=== PATIENT | male | born 1995 | race Caucasian/White ===

== ENCOUNTER 2018-10-05 06:26 | Emergency (ER) | payer OTHER ==
[2018-10-05 07:44] LABS: BASO % 0.4 % (0.0-1.0); EOS # 0.3 10^3/uL (0.0-0.50); EOS % 3.8 % (0.0-3.0); HEMATOCRIT 43.1 % (42.0-52.0); HEMOGLOBIN 14.8 g/dl (13.5-17.5); IMMATURE GRANULOCYTE % 0.5 % (0-3.0); LYMPH # 0.9 10^3/uL (1.5-6.5); LYMPH % 11.7 % (24.0-44.0); MEAN CORPUSCULAR HEMOGLOBIN 30.5 pg (27.0-33.0); MEAN CORPUSCULAR HGB CONC 34.3 g/dl (32.0-36.5); MEAN CORPUSCULAR VOLUME 88.9 fl (80.0-96.0); MONO # 0.5 10^3/uL (0.0-0.8); MONO % 6.8 % (0.0-5.0); NEUTROPHILS # 6.1 10^3/uL (1.8-7.7); NEUTROPHILS % 76.8 % (36.0-66.0); PLATELET COUNT, AUTOMATED 263 10^3/uL (150-450); RED BLOOD COUNT 4.85 10^6/uL (4.30-6.10); RED CELL DISTRIBUTION WIDTH 12.1 % (11.5-14.5); WHITE BLOOD COUNT 7.9 10^3/uL (4.0-10.0)
[2018-10-05 08:20] LABS: ANION GAP 6 MEQ/L (8-16); BLOOD UREA NITROGEN 20 MG/DL (7-18); CALCIUM LEVEL 9.4 MG/DL (8.5-10.1); CARBON DIOXIDE LEVEL 30 MEQ/L (21-32); CHLORIDE LEVEL 102 MEQ/L (98-107); CREATININE FOR GFR 1.34 MG/DL (0.70-1.30); GLOMERULAR FILTRATION RATE > 60.0 (>60); GLUCOSE, FASTING 90 MG/DL (70-100); POTASSIUM SERUM 4.5 MEQ/L (3.5-5.1); SODIUM LEVEL 138 MEQ/L (136-145)
[2018-10-05 08:22] LABS: FREE THYROXINE INDEX 3.6 % (1.4-3.8); T UPTAKE 33 % (33-40); THYROXINE (T4) 10.8 UG/DL (4.5-12.0)
[2018-10-05] MEDS: NS 1,000 ML IV (08:43)
[2018-10-05] MEDS ORDERED: ISOVUE-370 76% 100ML VIAL (Q9967) As Ordered (08:47)
== END 2018-10-05 10:23 | disposition home or self-care (01) ==
LOC: M ED 06:26
DX: J02.9 Acute pharyngitis, unspecified (principal); E86.0 Dehydration; Z79.890 Hormone replacement therapy
CPT/HCPCS: Q9967

== ENCOUNTER → 2018-12-12 | Outpatient (REF) | payer OTHER ==
[~2018-12-12] MED LIST: IBUP-1022 PO; LEVO112T2 PO
[2018-12-12 12:56] LABS: FREE T4 1.13 NG/DL (0.76-1.46); THYROID STIMULATING HORMONE 8.15 uIU/ML (0.358-3.740)
== END ==
LOC: M LABDRAW1 11:35
PROVIDERS: ATTEND Nurse Practitioner Family
DX: E06.3 Autoimmune thyroiditis (principal)

== ENCOUNTER 2019-03-15 00:05 | Emergency (ER) | payer OTHER ==
[~2019-03-15] VITALS: Ht 182.9 cm; Wt 81.8 kg
[2019-03-15 00:53] LABS: BASO % 0.4 % (0.0-1.0); EOS # 0.2 10^3/uL (0.0-0.50); EOS % 3.3 % (0.0-3.0); HEMATOCRIT 43.7 % (42.0-52.0); LYMPH # 1.9 10^3/uL (1.5-6.5); LYMPH % 36.1 % (24.0-44.0); MEAN CORPUSCULAR HEMOGLOBIN 29.2 pg (27.0-33.0); MEAN CORPUSCULAR HGB CONC 34.3 g/dl (32.0-36.5); MONO # 0.6 10^3/uL (0.0-0.8); MONO % 10.7 % (0.0-5.0); NEUTROPHILS # 2.5 10^3/uL (1.8-7.7); NEUTROPHILS % 48.9 % (36.0-66.0); PLATELET COUNT, AUTOMATED 259 10^3/uL (150-450); RED BLOOD COUNT 5.14 10^6/uL (4.30-6.10); WHITE BLOOD COUNT 5.1 10^3/uL (4.0-10.0)
[2019-03-15 01:23] LABS: AMPHETAMINES LEVEL URINE NEGATIVE (NEGATIVE); BARBITURATES URINE NEGATIVE (NEGATIVE); BENZODIAZEPINES URINE NEGATIVE (NEGATIVE); CANNABINOIDS URINE NEGATIVE (NEGATIVE); COCAINE METABOLITE URINE NEGATIVE (NEGATIVE); METHADONE URINE NEGATIVE (NEGATIVE); OPIATES URINE NEGATIVE (NEGATIVE); PHENCYCLIDINE URINE NEGATIVE (NEGATIVE)
[2019-03-15 01:26] LABS: ALBUMIN 3.9 GM/DL (3.2-5.2); ALT/SGPT 21 U/L (12-78); BILIRUBIN,DIRECT < 0.1 MG/DL (0.0-0.2); BILIRUBIN,TOTAL 0.3 MG/DL (0.2-1.0); BLOOD UREA NITROGEN 16 MG/DL (7-18); CALCIUM LEVEL 8.7 MG/DL (8.5-10.1); CARBON DIOXIDE LEVEL 31 MEQ/L (21-32); CHLORIDE LEVEL 104 MEQ/L (98-107); CREATININE FOR GFR 1.47 MG/DL (0.70-1.30); ETHYL ALCOHOL (ETHANOL) < 0.003 % (0.000-0.010); FREE T4 1.05 NG/DL (0.76-1.46); GLOMERULAR FILTRATION RATE > 60.0 (>60); GLUCOSE, FASTING 111 MG/DL (70-100); POTASSIUM SERUM 3.8 MEQ/L (3.5-5.1); SODIUM LEVEL 141 MEQ/L (136-145); TOTAL PROTEIN 7.7 GM/DL (6.4-8.2)
[2019-03-15 02:58] VITALS: BP 148/87
[2019-03-15] MEDS ORDERED: IBUPROFEN 600 MG TAB PO ONE (03:00)
== END 2019-03-15 03:22 | disposition home or self-care (01) ==
LOC: M ED 00:05
DX: F45.0 Somatization disorder (principal); E03.9 Hypothyroidism, unspecified; Z79.890 Hormone replacement therapy
CPT/HCPCS: 80048; 80076; 80307; 84439; 84443; 85025; 99284; G0480

== ENCOUNTER → 2019-03-22 | Outpatient (CLI) | payer OTHER ==
--- NOTE | 2019-03-22 16:55 | REP ---
MR BRAIN WITHOUT CONTRAST: HISTORY: Migraine headache. Several punctate areas of increased signal intensity on T2-weighted images are present in the subcortical white matter of the frontal lobes. There is no intraparenchymal hemorrhage, infarct, mass or midline shift. The ventricular system is normal in appearance. There is no extracerebral collection. Minimal mucosal thickening is present in the left maxillary sinus. IMPRESSION: There are several punctate areas of increased signal intensity in the subcortical white matter of the frontal lobes. This is a nonspecific finding, however, can be seen in conditions such as migraine. Electronically Signed by Gm Johnson MD 03/22/2019 05:04 P
== END ==
LOC: M RAD 14:31
PROVIDERS: ATTEND Physician Assistant
DX: R51 Headache (principal)

== ENCOUNTER 2019-12-04 00:49 | Inpatient (IN) | payer OTHER ==
[~2019-12-04] VITALS: Ht 190.5 cm; Wt 97.2 kg
[~2019-12-04 00:49] MED LIST changes: +ONDA4TAB6 PO
[2019-12-04] MEDS ORDERED: NS 1,000 ML IV ONE ×2 (01:30→03:15)
[2019-12-04] MEDS ORDERED: MORPHINE 4 MG/ML 1ML VIAL/SYRINGE (J2270) IV ONE (01:45)
[2019-12-04] MEDS ORDERED: METOCLOPRAMIDE INJ 10MG/2ML VIAL (J2765) IV ONE (01:45)
[2019-12-04 01:51] LABS: BASO # 0.1 10^3/uL (0.0-0.2); BASO % 0.8 % (0.0-1.0); EOS # 0.5 10^3/uL (0.0-0.5); EOS % 5.5 % (0.0-3.0); HEMATOCRIT 44.1 % (42.0-52.0); HEMOGLOBIN 14.3 g/dl (13.5-17.5); LYMPH # 1.4 10^3/uL (1.5-5.0); LYMPH % 14.6 % (24.0-44.0); MEAN CORPUSCULAR HGB CONC 32.4 g/dl (32.0-36.5); MEAN CORPUSCULAR VOLUME 89.5 fl (80.0-96.0); MONO # 0.8 10^3/uL (0.0-0.8); MONO % 8.2 % (0.0-5.0); NEUTROPHILS # 6.7 10^3/uL (1.5-8.5); NEUTROPHILS % 70.3 % (36.0-66.0); PLATELET COUNT, AUTOMATED 542 10^3/uL (150-450); RED BLOOD COUNT 4.93 10^6/uL (4.30-6.10); WHITE BLOOD COUNT 9.5 10^3/uL (4.0-10.0)
[2019-12-04 02:01] LABS: INR 1.13; PROTHROMBIN TIME 14.2 SECONDS (11.8-14.0)
[2019-12-04 02:09] LABS: ERYTHROCYTE SEDIMENTATION RATE 46 mm/hr (0-15)
[2019-12-04 02:13] LABS: ALBUMIN 3.6 GM/DL (3.2-5.2); BILIRUBIN,DIRECT 0.2 MG/DL (0.0-0.2); BILIRUBIN,TOTAL 0.5 MG/DL (0.2-1.0); C REACTIVE PROTEIN QUANTITATIV 2.93 MG/DL (0.00-0.30); CALCIUM LEVEL 8.8 MG/DL (8.5-10.1); CREATININE FOR GFR 1.63 MG/DL (0.70-1.30); GLOMERULAR FILTRATION RATE 56.1 (>60); POTASSIUM SERUM 4.4 MEQ/L (3.5-5.1); TOTAL PROTEIN 7.6 GM/DL (6.4-8.2)
[2019-12-04] MEDS ORDERED: NS 1,000 ML IV SCH (03:15)
[2019-12-04] MEDS ORDERED: ONDANSETRON 4MG/2ML VIAL (J2405) IV PRN (03:15)
[2019-12-04] MEDS ORDERED: MAALOX 30 ML SUSP *UDC PO PRN (03:15)
[2019-12-04 04:00] VITALS: BP 136/81
[2019-12-04] MEDS: ACETAMINOPHEN TAB 650MG DOSE (2X325MG) PO PRN ×3 (04:10→20:11)
[2019-12-04] MEDS: MOM 30ML SUSPENSION UDC PO PRN (04:14)
--- NOTE | 2019-12-04 04:37 | HPEPDOC ---
[facility] Medical History & Physical Date of Admission Dec 04, 2019 Date of Service: Dec 04, 2019 History and Physical CHIEF COMPLAINT: Flank pain, nausea HISTORY OF PRESENT ILLNESS: Patient is a 24-year-old male with past medical history of hypothyroidism, presenting with nausea without vomiting, decrease oral intake. Per patient, he was diagnosed with flu approximately a week ago where he had a fever, took E xcedrin which alleviated his symptoms. His previous cough-like symptoms have resolved. He does report recent travel to [place], but denies sick contacts. However, he put reports nausea without vomiting, decrease oral intake, and new onset kidney/flank pain. He does note conjunctivitis that started about 1-2 weeks ago, no vision changes, no itchiness, no pain. He came to the ED the day prior with similar workup, urine does not appear to be suggestive of UTI, creatinine was consistent at 1.6. In the ED, he is afebrile, initial blood pressure slightly elevated 147/71. As include a CBC of 9.5, H&H of 14.3 and 44.3 respectively, platelets of 542. Patient does have elevated neutrophil percentage, interestingly, he also has elevated eosinophil percentage. Imaging includes chest x-ray today, which appears to be NAD, pending official read. He also had a CT abdomen and pelvis performed on 12/03/2019, which reveals no nephrolithiasis or hydronephrosis, but reveals stool suggestive of constipation. ROS: 10 point review systems negative except per above. PMH: See above. PSH: See above. Family history: Reviewed and noncontributory Social history: No tobacco, alcohol, or illicits, he is in the Medications: Reviewed Allergies: NKDA PHYSICAL EXAMINATION: VITAL SIGNS: Please see below. GENERAL: male who does appear to be clinically sick HEENT: Normocephalic, atraumatic, moist mucous membranes, PERRLA, EOMI, bilateral conjunctivitis, no drainage NECK: Supple, no LAD CARDIOVASCULAR EXAMINATION: S1, S2 RESPIRATORY EXAMINATION: CTAB ABDOMINAL EXAMINATION: Soft, nontender, nondistended, hypoactive bowel sounds, bilateral CVA tenderness EXTREMITIES: no edema SKIN: No rash NEUROLOGICAL EXAMINATION: awake PSYCHIATRIC EXAMINATION: Calm and cooperative, appropriate affect Patient is a 24-year-old male with past medical history of hypothyroidism, presenting with nausea without vomiting, decrease oral intake and CHRISTOPHER. Observation, MedSurg. #CHRISTOPHER, likely secondary to prerenal from dehydration: Deferred. differentials include infection gastroenteritis, autoimmune processes, Patient only received 1 L of normal saline in the ED, his weight is 189, will bolus more IVF with maintenance fluids, will also administer anti-emetics, avoid nephrotoxins, monitor creatinine and GFR #Asymptomatic conjunctivitis: Continue to monitor, conjunctivitis with nausea and constipation could be suggestive of marijuana use, follow-up UDS #Elevated CRP/thrombocytosis suggestive of inflammatory progress could be secondary to underlying hypothyroidism and dehydration, if patients symptoms worsen, could be associated to other autoimmune processes related to Churg doreen syndrome, lupus, rheumatoid, Sjogren syndrome, etc. may need rheum vs nephrology evaluation if pts sx dont improve with sx tx. If infection, appears to be viral at this time, no antibiotics. #elevated eosinophil %: allergies vs autoimmune, monitor CBC #Hypothyroidism: Continue patients home medication #Constipation: Bowel regimen. DVT prophylaxis: freq ambulation, SCDs Full code Vital Signs Vital Signs Date Time Temp Pulse Resp B/P (MAP) Pulse Ox O2 Delivery O2 Flow Rate FiO2 12/04/19 03:10 98.4 71 18 129/60 (83) 94 12/04/19 00:50 Room Air Laboratory Data Labs 24H Laboratory Tests 2 12/04/19 01:40: Immature Granulocyte % (Auto) 0.6, Neutrophils (%) (Auto) 70.3H, Lymphocytes (%) (Auto) 14.6L, Monocytes (%) (Auto) 8.2H, Eosinophils (%) (Auto) 5.5H, Basophils (%) (Auto) 0.8, Neutrophils # (Auto) 6.7, Lymphocytes # (Auto) 1.4L, Monocytes # (Auto) 0.8, Eosinophils # (Auto) 0.5, Basophils # (Auto) 0.1, Nucleated Red Blood Cells % (auto) 0.0, Erythrocyte Sedimentation Rate 46H, Prothrombin Time 14.2H, Prothromb Time International Ratio 1.13, Anion Gap 7L, Glomerular Filtration Rate 56.1L, Lactic Acid Level 0.7, Calcium Level 8.8, Total Bilirubin 0.5, Direct Bilirubin 0.2, Aspartate Amino Transf (AST/SGOT) 26, Alanine Aminotransferase (ALT/SGPT) 67, Alkaline Phosphatase 108, Total Creatine Kinase 181, C-Reactive Protein, Quantitative 2.93H, Total Protein 7.6, Albumin 3.6, Albumin/Globulin Ratio 0.90L, Lipase 95 CBC/BMP Laboratory Tests 12/04/19 01:40 Home Medications Scheduled Levothyroxine Sodium (Levothyroxine Sodium) 112 Mcg Tab, 112 MCG PO DAILY Allergies Coded Allergies: No Known Allergies (Unverified , 10/05/18) A-FIB/CHADSVASC A-FIB History Current/History of A-Fib/PAF?: No JOHANNA YANG MD Dec 04, 2019 03:15
[2019-12-04 06:00] VITALS: BP 115/58
[2019-12-04] MEDS: NS 1,000 ML IV SCH ×3 (06:17→22:09)
--- NOTE | 2019-12-04 07:23 | REP ---
Clinical: Lower chest and flank pain . Comparison: None . Technique: PA and lateral. Findings: The mediastinum and cardiac silhouette are normal. The lung more are clear and without acute consolidation, effusion, or pneumothorax. The skeletal structures are intact and normal. Impression: 1. No acute cardiopulmonary process. Electronically Signed by Kamaljit Hook MD 12/04/2019 07:14 A
[2019-12-04] MEDS: DOCUSATE SODIUM 100 MG CAP PO SCH ×2 (09:19→20:11)
[2019-12-04] MEDS: MIRALAX *UNIT DOSE* 17GM PACKET PO SCH (09:19)
--- NOTE | 2019-12-04 10:32 | IPNPDOC ---
Subjective Date Seen The patient was seen on 12/04/19. Subjective Chief Complaint/HPI Seen and examined at bedside, awake and alert, denies cp/pressure, sob, n/v/d, some mild abdominal cramping, no urinary complaints. General: Reports: Normal Appetite; Denies: Chills, Night Sweats, Fatigue, Malaise Constitutional: Reports: Weakness; Denies: Chills, Fever, Night Sweats Eyes: Reports: Conjunctivae inflammation, Redness; Denies: Pain, Vision change ENT: Denies: Head Aches, Ear Pain, Dysphagia Skin: Denies: Rash, Lesions, Breakdown Pulmonary: Denies: Dyspnea, Cough Cardiovascular: Denies: Chest Pain, Palpitations, Orthopnea, Paroxysmal Noc. Dyspnea, Lt Headedness Gastrointestinal: Denies: Nausea, Vomiting, Abdominal Pain, Diarrhea, Constipation Genitourinary: Denies: Dysuria, Frequency, Incontinence, Retention Hematologic: Denies: Bruising, Bleeding Excessively Musculoskeletal: Denies: Neck Pain, Back Pain, Joint Pain, Muscle Pain, Spasms Neurological: Denies: Weakness, Numbness, Change in speech, Confusion Psych: Reports: Mood Normal; Denies: Depression, Memory Issues Objective Physical Examination General Exam: Positive: Alert, No Acute Distress Eye Exam: Positive: PERRLA, Conjunctiva & lids normal, EOMI, Ptosis, Other Eye Symptoms (subconjunctival hemorrhages); Negative: Sclera icteric ENT Exam: Positive: Atraumatic, Mucous membr. moist/pink, Pharynx Normal Neck Exam: Positive: Supple; Negative: JVD, thyromegaly Chest Exam: Positive: Clear to auscultation, Normal air movement Heart Exam: Positive: Rate Normal, Regular Rhythm, Normal S1, Normal S2; Negative: Murmurs, Rubs Telemetry: Positive: No significant arrhythmia Abdomen Exam: Positive: Normal bowel sounds, Soft; Negative: Tenderness, Hepatospenomegaly Male Exam: Positive: Normal Genital Exam Extremity Exam: Positive: Normal pulses; Negative: Clubbing, Cyanosis, Edema Skin Exam: Positive: Nl turgor and temperature; Negative: Rash, Breakdown Neuro Exam: Positive: Normal Gait, Normal Speech, Cranial Nerves 3-12 NL, Reflexes 2+ Psych Exam: Positive: Mental status NL, Mood NL, Oriented x 3 Assessment /Plan Assessment 1. CHRISTOPHER - continue IVF. - monitor SCr, encourage PO intake. - avoid nephrotoxic agents. 2. asymptomatic conjunctivitis - ?marijuana use, pending urine drug screen - monitor, eyedrops as needed. 3. hypothyroidism - continue synthroid. 4. elevated CRP/platelets - could be secondary to underlying hypothyroidism and dehydration. - monitor, consider rheum consult if symptoms worsen. 5. constipation - bowel regimen. 6. DVT ppx - SCD's. Plan/VTE VTE Prophylaxis Ordered?: Yes VS, I&O, 24H, Fishbone Vital Signs/I&O Vital Signs Date Time Temp Pulse Resp B/P (MAP) Pulse Ox O2 Delivery O2 Flow Rate FiO2 12/04/19 06:00 98.2 69 17 115/58 (77) 98 Room Air I&O- Last 24 Hours up to 6 AM 12/04/19 06:00 Intake Total 1300 ml Balance 1300 ml Laboratory Data 24H LABS Laboratory Tests 2 12/04/19 01:40: Immature Granulocyte % (Auto) 0.6, Neutrophils (%) (Auto) 70.3H, Lymphocytes (%) (Auto) 14.6L, Monocytes (%) (Auto) 8.2H, Eosinophils (%) (Auto) 5.5H, Basophils (%) (Auto) 0.8, Neutrophils # (Auto) 6.7, Lymphocytes # (Auto) 1.4L, Monocytes # (Auto) 0.8, Eosinophils # (Auto) 0.5, Basophils # (Auto) 0.1, Nucleated Red Blood Cells % (auto) 0.0, Erythrocyte Sedimentation Rate 46H, Prothrombin Time 14.2H, Prothromb Time International Ratio 1.13, Anion Gap 7L, Glomerular Filtration Rate 56.1L, Lactic Acid Level 0.7, Calcium Level 8.8, Total Bilirubin 0.5, Direct Bilirubin 0.2, Aspartate Amino Transf (AST/SGOT) 26, Alanine Aminotransferase (ALT/SGPT) 67, Alkaline Phosphatase 108, Total Creatine Kinase 181, C-Reactive Protein, Quantitative 2.93H, Total Protein 7.6, Albumin 3.6, Albumin/Globulin Ratio 0.90L, Lipase 95 CBC/BMP Laboratory Tests 12/04/19 01:40 SONYA DANIELSON MD Dec 04, 2019 10:32
[2019-12-04 14:00] VITALS: BP 138/73
[2019-12-04] MEDS ORDERED: BISACODYL 10 MG SUPP PR PRN (18:00)
[2019-12-04 22:00] VITALS: BP 135/73
[2019-12-05] MEDS: MOM 30ML SUSPENSION UDC PO PRN (04:09)
[2019-12-05] MEDS: ACETAMINOPHEN TAB 650MG DOSE (2X325MG) PO PRN ×2 (04:09→12:31)
[2019-12-05 06:00] VITALS: BP 133/75
[2019-12-05 07:36] LABS: HEMATOCRIT 42.4 % (42.0-52.0); HEMOGLOBIN 13.7 g/dl (13.5-17.5); MEAN CORPUSCULAR HEMOGLOBIN 28.7 pg (27.0-33.0); MEAN CORPUSCULAR HGB CONC 32.3 g/dl (32.0-36.5); MEAN CORPUSCULAR VOLUME 88.7 fl (80.0-96.0); PLATELET COUNT, AUTOMATED 523 10^3/uL (150-450); RED BLOOD COUNT 4.78 10^6/uL (4.30-6.10); WHITE BLOOD COUNT 9.7 10^3/uL (4.0-10.0)
[2019-12-05 08:07] LABS: BLOOD UREA NITROGEN 12 MG/DL (7-18); CALCIUM LEVEL 9.1 MG/DL (8.5-10.1); CARBON DIOXIDE LEVEL 28 MEQ/L (21-32); CHLORIDE LEVEL 103 MEQ/L (98-107); CREATININE FOR GFR 1.39 MG/DL (0.70-1.30); GLOMERULAR FILTRATION RATE > 60.0 (>60); GLUCOSE, FASTING 84 MG/DL (70-100); POTASSIUM SERUM 3.9 MEQ/L (3.5-5.1); SODIUM LEVEL 138 MEQ/L (136-145)
[2019-12-05] MEDS: MIRALAX *UNIT DOSE* 17GM PACKET PO SCH (08:12)
[2019-12-05] MEDS: DOCUSATE SODIUM 100 MG CAP PO SCH ×2 (08:12→20:02)
[2019-12-05] MEDS ORDERED: FLEET ENEMA PR PRN (08:30)
[2019-12-05 10:12] VITALS: BP 133/72
[2019-12-05] MEDS: LEVOTHYROXINE 112MCG TABLET (0.112MG) PO SCH (12:31)
[2019-12-05 14:40] VITALS: BP 132/59
[2019-12-05] MEDS: OLOPATADINE 0.1% OPHTH SOL 5ML(PATANOL) OU SCH (15:46)
--- NOTE | 2019-12-05 19:47 | IPNPDOC ---
Date Seen The patient was seen on 12/05/19. Progress Note SUBJECTIVE: Patient reports continuing to feel better, especially after getting fleet enema. Stated that he had been constipated for 5 days and feels much better after. Denies any n/v, started on regular diet. OBJECTIVE PHYSICAL EXAMINATION: VITAL SIGNS: Please see below. General: No acute distress, Alert Eyes: b/l conjunctivitis. No purulent discharge. HENT: Atraumatic Cardiovascular: Normal rate, normal rhythm. Pulmonary: Clear to auscultation b/l, no wheezing GI: Soft, nontender, nondistended Skin: Warm and dry Neuro: CN grossly intact. No focal deficits. Strengths equal b/l. Psych: oriented x 3 LABORATORY DATA, IMAGING STUDIES, MICROBIOLOGY: Please see below. DVT prophylaxis ordered?: SCD ASSESSMENT AND PLAN: 1. CHRISTOPHER - Improving with IVF. 2. Conjunctivitis - suspect viral. No purulent discharge, no visual changes. - No significant signs of systemic infection. - c/w Patanol eye drops. 3. Hypothyroidism - synthroid resumed 4. Elevated CRP/Platelets - suspect inflammatory response in setting of hypothyroidism and dehydration. - slightly trending down with IVF. - Suspect reactive in nature vs. familial thrombocytosis as patient does not exhibit polycythemia or leukocytosis. can be 2/2 viral infection. 5. Constipation - improving symptoms after enema. - c/w bowel regimen. Dispo: Likely d/c home soon if continue to improve VS, I&O, 24H, Fishbone Vital Signs/I&O Vital Signs Date Time Temp Pulse Resp B/P (MAP) Pulse Ox O2 Delivery O2 Flow Rate FiO2 12/05/19 14:40 98.7 74 18 132/59 (83) 97 Room Air I&O- Last 24 Hours up to 6 AM 12/05/19 06:00 Intake Total 4500 ml Output Total 300 ml Balance 4200 ml Laboratory Data 24H LABS Laboratory Tests 2 12/05/19 07:00: Nucleated Red Blood Cells % (auto) 0.0, Anion Gap 7L, Glomerular Filtration Rate > 60.0, Calcium Level 9.1 CBC/BMP Laboratory Tests 12/05/19 07:00 CAROLYNE QUIÑONES MD Dec 05, 2019 19:47
[2019-12-05 21:00] VITALS: BP 124/68
[2019-12-06] MEDS: LEVOTHYROXINE 112MCG TABLET (0.112MG) PO SCH (05:32)
[2019-12-06 06:00] VITALS: BP 117/74
[2019-12-06 06:51] LABS: HEMATOCRIT 44.8 % (42.0-52.0); HEMOGLOBIN 14.6 g/dl (13.5-17.5); MEAN CORPUSCULAR HEMOGLOBIN 28.6 pg (27.0-33.0); MEAN CORPUSCULAR HGB CONC 32.6 g/dl (32.0-36.5); MEAN CORPUSCULAR VOLUME 87.7 fl (80.0-96.0); PLATELET COUNT, AUTOMATED 600 10^3/uL (150-450); RED BLOOD COUNT 5.11 10^6/uL (4.30-6.10); WHITE BLOOD COUNT 8.4 10^3/uL (4.0-10.0)
[2019-12-06 07:12] LABS: BLOOD UREA NITROGEN 18 MG/DL (7-18); CALCIUM LEVEL 9.8 MG/DL (8.5-10.1); CARBON DIOXIDE LEVEL 29 MEQ/L (21-32); CHLORIDE LEVEL 99 MEQ/L (98-107); CREATININE FOR GFR 1.44 MG/DL (0.70-1.30); GLOMERULAR FILTRATION RATE > 60.0 (>60); GLUCOSE, FASTING 88 MG/DL (70-100); POTASSIUM SERUM 4.2 MEQ/L (3.5-5.1); SODIUM LEVEL 135 MEQ/L (136-145)
[2019-12-06] MEDS: OLOPATADINE 0.1% OPHTH SOL 5ML(PATANOL) OU SCH (09:39)
[2019-12-06] MEDS: MIRALAX *UNIT DOSE* 17GM PACKET PO SCH (09:39)
[2019-12-06] MEDS: DOCUSATE SODIUM 100 MG CAP PO SCH (09:39)
[2019-12-06] MEDS: ACETAMINOPHEN TAB 650MG DOSE (2X325MG) PO PRN (09:40)
[2019-12-06 10:11] LABS: BASO # 0.1 10^3/uL (0.0-0.2); BASO % 1.1 % (0.0-1.0); EOS # 0.6 10^3/uL (0.0-0.5); EOS % 7.3 % (0.0-3.0); LYMPH # 1.7 10^3/uL (1.5-5.0); MONO # 0.6 10^3/uL (0.0-0.8); MONO % 7.3 % (0.0-5.0); NEUTROPHILS # 5.4 10^3/uL (1.5-8.5); NEUTROPHILS % 64.1 % (36.0-66.0)
[2019-12-06 10:14] LABS: THYROID STIMULATING HORMONE 4.74 uIU/ML (0.358-3.740)
[2019-12-06 10:34] LABS: PLATELET ESTIMATE NORMAL (NORMAL)
[2019-12-06 11:16] LABS: FOLATE 13.6 NG/ML (>5.4)
--- NOTE | 2019-12-06 17:28 | DS.PDOC ---
Discharge Summary General Date of Admission Dec 05, 2019 at 15:07 Date of Discharge 12/06/18 Discharge Summary PROCEDURES PERFORMED DURING STAY: [None]. ADMITTING DIAGNOSES: 1. KOREY 2. Elevated CRP/Thrombocytosis 3. Hypothyroidism 4. Constipation DISCHARGE DIAGNOSES: 1. KOREY 2. Elevated CRP/Thrombocytosis 3. Hypothyroidism 4. Constipation COMPLICATIONS/CHIEF COMPLAINT: Korey, Dehydration,Hypothyroidism, Unspecified. HISTORY OF PRESENT ILLNESS: "Patient is a 24-year-old male with past medical history of hypothyroidism, presenting with nausea without vomiting, decrease oral intake. Per patient, he was diagnosed with flu approximately a week ago where he had a fever, took Excedrin which alleviated his symptoms. His previous cough-like symptoms have resolved. He does report recent travel to [place], but denies sick contacts. However, he put reports nausea without vomiting, decrease oral intake, and new onset kidney/flank pain. He does note conjunctivitis that started about 1-2 week s ago, no vision changes, no itchiness, no pain. He came to the ED the day prior with similar workup, urine does not appear to be suggestive of UTI, creatinine was consistent at 1.6. In the ED, he is afebrile, initial blood pressure slightly elevated 147/71. As include a CBC of 9.5, H&H of 14.3 and 44.3 respectively, platelets of 542. Patient does have elevated neutrophil percentage, interestingly, he also has elevated eosinophil percentage. Imaging includes chest x-ray today, which appears to be NAD, pending official read. He also had a CT abdomen and pelvis performed on 12/03/2019, which reveals no nephrolithiasis or hydronephrosis, but reveals stool suggestive of constipation." HOSPITAL COURSE: Patient was treated conservatively with improvement in symptoms, improved sig nificantly after getting a fleet enema and evacuated stool. He denies anymore abdominal discomfort nor nausea. Thrombocytosis is persistent up to 600 but patient did report just getting over a flu. Unknown baseline although low suspicion for essential thrombocytopenia. Workup show no significant iron deficiency with a normal peripheral blood smear. Suspect that thrombocytopenia is likely reactive and will improve with time. Discussed with Dr. Amaro with Hematology and agree with plan. Will discharge patient to follow up with PMD and repeat CBC. If platelets levels worsens or not improve, may benefit from hematology referral for further workup at that time. Plans discussed with patient. To be discharged as patient is completely asymptomatic at this time. DISCHARGE MEDICATIONS: Please see below. ALLERGIES: Please see below. PHYSICAL EXAMINATION ON DISCHARGE: VITAL SIGNS: Please see below. General: No acute distress, Alert Eyes: Normal sclera, EOMI, GAVIN HENT: Atraumatic Cardiovascular: Normal rate, normal rhythm. Pulmonary: Clear to auscultation b/l, no wheezing GI: Soft, nontender, nondistended Skin: Warm and dry Neuro: CN grossly intact. No focal deficits. Strengths equal b/l. Psych: oriented x 3 LABORATORY DATA: Please see below. IMAGING: CXR- 1. No acute cardiopulmonary process. ACTIVITY: [As tolerated]. DIET: Regular DISCHARGE PLAN: f/u PMD and repeat CBC- consider hematology referral with platelet levels worsen or does not improve DISPOSITION: 01 Home, Self-Care. DISCHARGE INSTRUCTIONS: f/u PMD and repeat CBC- consider hematology referral with platelet levels worsen or does not improve ITEMS TO FOLLOWUP ON ON OUTPATIENT: None DISCHARGE CONDITION: [Stable]. TIME SPENT ON DISCHARGE: 35 minutes. Vital Signs/I&Os Vital Signs Date Time Temp Pulse Resp B/P (MAP) Pulse Ox O2 Delivery O2 Flow Rate FiO2 12/06/19 06:00 98.2 63 16 117/74 (88) 99 Room Air I&O- Last 24 Hours up to 6 AM 12/06/19 06:00 Intake Total 1920 ml Output Total 1000 ml Balance 920 ml Laboratory Data Labs 24H Laboratory Tests 2 12/06/19 06:25: Immature Granulocyte % (Auto) 0.2, Neutrophils (%) (Auto) 64.1, Lymphocytes (%) (Auto) 20.0L, Monocytes (%) (Auto) 7.3H, Eosinophils (%) (Auto) 7.3H, Basophils (%) (Auto) 1.1H, Immature Granulocyte # (Auto) 0.0, Neutrophils # (Auto) 5.4, Lymphocytes # (Auto) 1.7, Monocytes # (Auto) 0.6, Eosinophils # (Auto) 0.6H, Basophils # (Auto) 0.1, Nucleated Red Blood Cells % (auto) 0.0, Differential Slide Review Report, Red Blood Cell Morphology NORMAL, Platelet Estimate NORMAL, Peripheral Blood Smear Path Consult PERIPHERAL SMEAR, Anion Gap 7L, Glomerular Filtration Rate > 60.0, Calcium Level 9.8 12/06/19 09:28: Iron Level 68, Total Iron Binding Capacity 357, Transferrin % Saturation 19.0L, Ferritin 122, Vitamin B12 Level 471, Folate 13.6, Thyroid Stimulating Hormone (TSH) 4.740H CBC/BMP Laboratory Tests 12/06/19 06:25 Discharge Medications Scheduled Levothyroxine Sodium (Levothyroxine Sodium) 112 Mcg Tab, 112 MCG PO DAILY, (Reported) Allergies Coded Allergies: No Known Allergies (Unverified , 10/05/18) CAROLYNE QUIÑONES MD Dec 06, 2019 17:28
== END 2019-12-06 14:16 | disposition home or self-care (01) | DRG 684 ==
LOC: M ED 00:49 → M ED INP 00:50 → ENRESERV 03:21 → M MSPAV 03:59 → M MS4PR 12-05 10:04 → OBSVTOIN 12-05 15:07
PROVIDERS: ADMIT Family Medicine; ATTEND Student in an Organized Health Care Education/Training Program
DX: N17.9 Acute kidney failure, unspecified (principal); E03.9 Hypothyroidism, unspecified; K59.00 Constipation, unspecified; D47.3 Essential (hemorrhagic) thrombocythemia; E86.0 Dehydration; Z79.899 Other long term (current) drug therapy; H10.9 Unspecified conjunctivitis

== ENCOUNTER 2019-12-12 19:55 | Emergency (ER) | payer OTHER ==
[2019-12-12] MEDS ORDERED: NS 1,000 ML IV ONE (21:15)
[2019-12-12 21:36] LABS: BASO # 0.1 10^3/uL (0.0-0.2); BASO % 0.7 % (0.0-1.0); EOS # 0.7 10^3/uL (0.0-0.5); EOS % 7.6 % (0.0-3.0); HEMOGLOBIN 14.1 g/dl (13.5-17.5); LYMPH # 1.2 10^3/uL (1.5-5.0); LYMPH % 13.3 % (24.0-44.0); MEAN CORPUSCULAR HEMOGLOBIN 29.1 pg (27.0-33.0); MEAN CORPUSCULAR HGB CONC 33.6 g/dl (32.0-36.5); MEAN CORPUSCULAR VOLUME 86.6 fl (80.0-96.0); MONO # 0.7 10^3/uL (0.0-0.8); NEUTROPHILS # 6.2 10^3/uL (1.5-8.5); NEUTROPHILS % 70.1 % (36.0-66.0); PLATELET COUNT, AUTOMATED 445 10^3/uL (150-450); RED BLOOD COUNT 4.85 10^6/uL (4.30-6.10); WHITE BLOOD COUNT 8.8 10^3/uL (4.0-10.0)
[2019-12-12 21:57] LABS: MONO SCRN NEGATIVE (NEGATIVE)
[2019-12-12 22:00] LABS: ALBUMIN 3.6 GM/DL (3.2-5.2); ALT/SGPT 30 U/L (12-78); BILIRUBIN,DIRECT 0.2 MG/DL (0.0-0.2); BILIRUBIN,TOTAL 0.5 MG/DL (0.2-1.0); BLOOD UREA NITROGEN 24 MG/DL (7-18); CALCIUM LEVEL 9.4 MG/DL (8.5-10.1); CARBON DIOXIDE LEVEL 26 MEQ/L (21-32); CHLORIDE LEVEL 101 MEQ/L (98-107); CPK CREATINE PHOSPHOKINASE 326 U/L (39-308); CREATININE FOR GFR 1.42 MG/DL (0.70-1.30); FREE T4 1.16 NG/DL (0.76-1.46); GLOMERULAR FILTRATION RATE > 60.0 (>60); GLUCOSE, FASTING 75 MG/DL (70-100); LIPASE 120 U/L (73-393); POTASSIUM SERUM 4.3 MEQ/L (3.5-5.1); SODIUM LEVEL 135 MEQ/L (136-145); TOTAL PROTEIN 7.9 GM/DL (6.4-8.2)
--- NOTE | 2019-12-12 22:20 | REPVR ---
PROCEDURE INFORMATION: Exam: CT Abdomen And Pelvis Without Contrast Exam date and time: 12/12/2019 9:55 PM Age: 24 years old Clinical indication: Abdominal pain; Flank; Other: Bilateral; Additional info: Bilateral flank pain TECHNIQUE: Imaging protocol: Computed tomography of the abdomen and pelvis without contrast. Axial, coronal and sagittal reformatted images were created and reviewed. Radiation optimization: All CT scans at this facility use at least one of these dose optimization techniques: automated exposure control; mA and/or kV adjustment per patient size (includes targeted exams where dose is matched to clinical indication); or iterative reconstruction. COMPARISON: CT ABD PELVIS W/O CONTRAST 12/03/2019 1:16 AM FINDINGS: Liver: Unremarkable. Gallbladder and bile ducts: No radiodense gallstones. No biliary ductal dilatation. Pancreas: Unremarkable. Spleen: Unremarkable. Adrenals: Unremarkable. Kidneys and ureters: No mass. No radiodense calculi. No hydronephrosis. Stomach and bowel: Moderate amount of retained stool in the colon. No obstruction. No bowel wall thickening. No pneumatosis. Appendix: Normal. Intraperitoneal space: Trace nonspecific free pelvic fluid, likely reactive. No organized fluid collection. No free air. Vasculature: Unremarkable. No aneurysm. Lymph nodes: No pathologically enlarged lymph nodes. Bladder: Mild circumferential urinary bladder wall thickening, likely secondary to underdistention. Reproductive: Unremarkable. Bones/joints: No acute osseous abnormality. Mild degenerative disc disease at L5-S1. Soft tissues: Unremarkable. IMPRESSION: 1. Limited noncontrast examination without CT evidence of acute intra-abdominal or pelvic pathology. 2. Additional findings, as above. Electronically signed by: Maxwell Beltre On 12/12/2019 22:19:30 PM
[2019-12-12] MEDS ORDERED: POLYSOL OP (23:15)
[2019-12-12 23:34] VITALS: BP 140/74
== END 2019-12-12 23:40 | disposition home or self-care (01) ==
LOC: M ED 19:55
DX: R10.9 Unspecified abdominal pain (principal); H10.9 Unspecified conjunctivitis; E07.9 Disorder of thyroid, unspecified; Z79.899 Other long term (current) drug therapy